=== PATIENT | male | born 1965 | race Caucasian/White ===

== ENCOUNTER 2017-06-12 08:30 | Day surgery (SDC) | payer OTHER ==
[~2017-06-12] VITALS: Ht 190.5 cm; Wt 99.8 kg
[~2017-06-12 08:30] MED LIST: 0.9% Sodium Chloride 1,000 ML IV SCH; Sodium Chloride LOK Flush 10 mL Syringe IV PRN; [UNRECOGNIZED DRUG - REMARK]; fentaNYL-PF 50 mCg/mL 2 mL Inj IVPUSH PRN
[2017-06-12 08:52] VITALS: BP 117/71; PULSE 89; RESP 16; O2SAT 97
[2017-06-12 10:02] VITALS: BP 112/71; PULSE 65; RESP 16; O2SAT 96
[2017-06-12 10:12] VITALS: BP 104/69; PULSE 77; RESP 16; O2SAT 95
--- NOTE | 2017-06-12 10:22 | ENDO ---
[address] [address] ENDOSCOPY PROCEDURE PATIENT: DK SOTO : 1965 MR#: [id number] ADMIT: 06/12/2017 JOB ID: [id number] CORRECTED REPORT: DATE: 06/12/2017 PRIMARY PROVIDER: PETTY Swartz PROCEDURE: Colonoscopy. INDICATIONS: A 51-year-old male who reports for colon cancer screening. EQUIPMENT: PCF-H180-AL. SEDATION: 5 mg Versed and 100 mcg fentanyl. COMPLICATIONS: None identified. BOWEL PREPARATION: Fair. PROCEDURE INFORMATION: After the risks and benefits were explained, written and verbal informed consent was obtained. The patient was brought into the endoscopy suite and placed in left lateral decubitus position. Sedation was achieved using the above-stated medications with the addition of oxygen via nasal cannula. Digital rectal examination was accomplished. No significant pathology appreciated. The scope was introduced into the rectum and advanced under direct visualization to the level of the cecum, as identified by the appendiceal orifice and ileocecal valve. The scope was slowly withdrawn to carefully examine the mucosa for any defects or lesions. Multiple direct views were made through the dentate line for exclusion of pathology. The colon was decompressed, the scope removed from the patient who tolerated the procedure well. FINDINGS: No significant polyps, mass lesions, or inflammatory features identified throughout. Mild internal hemorrhoidal cushions on direct views. ENDOSCOPIC DIAGNOSES: Visually unremarkable colonoscopy to cecum. RECOMMENDATIONS: Repeat colonoscopy in 10 years' time, sooner should symptoms warrant an earlier exam. Corrected by TENZIN 06/20/17 at 7:48am DOS.
[2017-06-12 10:24] VITALS: BP 131/87; PULSE 74; RESP 14; O2SAT 96
== END 2017-06-12 23:59 | disposition home or self-care (01) ==
LOC: END 08:30
PROVIDERS: ATTEND Internal Medicine Gastroenterology
DX: Z12.11 Encounter for screening for malignant neoplasm of colon (principal); K64.8 Other hemorrhoids
CPT/HCPCS: 99153; G0121; G0500; J2250; J3010; J7030